=== PATIENT | male | born 1970 | race Two or more races ===

== ENCOUNTER 2017-05-27 14:40 | Emergency (ER) | payer OTHER ==
[~2017-05-27] VITALS: Ht 177.8 cm; Wt 102.1 kg
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
--- NOTE | 2017-05-27 14:40 | NUR ---
DR HARE AT BEDSIDE FOR EVAL
--- NOTE | 2017-05-27 14:49 | NUR ---
EKG IN PROGRESS
[2017-05-27] MEDS ORDERED: BUPR300T54 PO (14:50)
[2017-05-27] MEDS ORDERED: EMTR1TAB17 PO (14:50)
[2017-05-27] MEDS ORDERED: METO25TA3 PO (14:50)
[2017-05-27] MEDS ORDERED: ANAS1TAB8 PO (14:50)
[2017-05-27] MEDS ORDERED: DOLU50TA PO (14:50)
[2017-05-27] MEDS ORDERED: RISP0.2515 PO (14:51)
[2017-05-27] MEDS ORDERED: LORAZEPAM INJ 2 MG/ML VIAL IVP ONE (15:00)
[2017-05-27] MEDS ORDERED: LORAZEPAM INJ 2 MG/ML VIAL ONE (15:00)
[2017-05-27] MEDS ORDERED: IV NS 0.9% 1,000 ML BAG IV ONE (15:00)
[2017-05-27] MEDS ORDERED: OLANZAPINE 5 MG/TAB.RAPDIS PO ONE (15:00)
[2017-05-27] MEDS ORDERED: OLANZAPINE 5 MG TABLET ONE (15:01)
--- NOTE | 2017-05-27 16:52 | NUR ---
IV removed. Catheter intact and site benign. Pressure and 4x4 applied to site. No bleeding noted.
--- NOTE | 2017-05-27 16:53 | NUR ---
Patient discharged to home in stable condition. Written and verbal after care instructions given. Patient verbalizes understanding of instruction. Sent medications with patient. Pt ambulatory steady gait
[2017-05-27 16:54] VITALS: BP 145/105
== END 2017-05-27 16:54 | disposition home or self-care (01) ==
LOC: ER 14:42
DX: F15.10 Other stimulant abuse, uncomplicated (principal); F24 Shared psychotic disorder; I10 Essential (primary) hypertension; T44.901A Poisoning by unspecified drugs primarily affecting the autonomic nervous system, accidental (unintentional), initial encounter; Y92.89 Other specified places as the place of occurrence of the external cause
CPT/HCPCS: 93005; 96361; 96374; 99284; A4606; J2060; J7030; Z7610